=== PATIENT | male | born 1985 | race Caucasian/White ===

== ENCOUNTER 2017-07-18 08:07 | Emergency (ER) | payer OTHER ==
[~2017-07-18] VITALS: Ht 172.7 cm; Wt 81.4 kg
[2017-07-18 08:24] VITALS: Ht 172.7 cm; Wt 81.4 kg
[2017-07-18 10:59] VITALS: BP 140/81
== END 2017-07-18 10:59 | disposition home or self-care (01) ==
LOC: ED 08:07
DX: B34.9 Viral infection, unspecified (principal); F17.210 Nicotine dependence, cigarettes, uncomplicated; R03.0 Elevated blood-pressure reading, without diagnosis of hypertension; Z71.6 Tobacco abuse counseling
CPT/HCPCS: 99406; J1885; Q0162